=== PATIENT | female | born 1985 | race American Indian/Alaskan Native ===

== ENCOUNTER 2016-12-12 19:52 | Emergency (ER) | payer OTHER ==
[2016-12-12 20:55] LABS: Bilirubin,Urine NEG (Negative); Blood,Urine SM (Negative); Ketones,Urine NEG (Negative); Leukocyte Esterase,Urine NEG (Negative); Nitrite,Urine NEG (Negative); Urobilinogen,Urine < 2.0 mg/dL (<2.0)
[2016-12-12 20:56] LABS: Basophils % (Auto) 0.2 % (0.0-1.8); Eosinophils % (Auto) 0.9 % (0.0-4.3); Hemoglobin 13.2 gm/dl (10.1-14.3); Mean Corpuscular HGB Conc 34 % (30-34); Mean Corpuscular Hemoglobin 29 pg (28-32); Mean Corpuscular Volume 86 fl (79-97); Platelet Count 222 K/mm3 (140-440); Red Blood Count 4.53 M/mm3 (3.65-5.03); Red Cell Distribution Width 13.1 % (13.2-15.2); White Blood Count 8.5 K/mm3 (4.5-11.0)
[2016-12-12 21:14] LABS: Alanine Aminotransferase 13 units/L (7-56); Albumin 3.8 g/dL (3.9-5); Albumin/Globulin Ratio 1.2 %; Alkaline Phosphatase 89 units/L (35-129); Anion Gap 17 mmol/L; BUN/Creatinine Ratio 14.28; Blood Urea Nitrogen 10 mg/dL (7-17); Calcium 8.6 mg/dL (8.4-10.2); Carbon Dioxide 22 mmol/L (22-30); Chloride 97.5 mmol/L (98-107); Glucose 304 mg/dL (65-100); Lipase 17 units/L (13-60); Potassium 3.9 mmol/L (3.6-5.0); Sodium 133 mmol/L (137-145); Total Protein 6.9 g/dL (6.3-8.2)
[2016-12-13] MEDS ORDERED: NACL 0.9% 1000 ML 1,000 ML IV ONE (02:55)
[2016-12-13] MEDS ORDERED: TORADOL IV ONE (02:55)
[2016-12-13] MEDS ORDERED: MORPHINE IV ONE (02:56)
--- NOTE | 2016-12-13 02:58 | Emergency Department Report ---
HPI - General Chief Complaint: Abdominal Pain Time Seen by Provider: 12/13/16 02:46 - HPI HPI: 31-year-old female presents to the emergency department, dropped off by her boyfriend, with complaint of pain to the bilateral lower back since yesterday. The patient thinks that she had a urinary tract infection last week and took some antibiotics that she had left over. She was having some dysuria at that time but it is since stopped. She also says that she had a fever last night with a temperature of 102. She has some nausea but no vomiting. She denies any chest pain, shortness of breath, numbness or paresthesias, problems with bowel movements, vaginal bleeding or discharge. She is not taken anything for symptoms prior to presentation other than the previous antibiotics. No recent travel or sick contacts at home. She has a primary care doctor but has not seen them in 6 months. She has a past medical history of insulin-dependent diabetes. ED Past Medical Hx - Past Medical History Previous Medical History?: Yes Hx Hypertension: No Hx Heart Attack/AMI: No Hx Congestive Heart Failure: No Hx Diabetes: Yes (2008) Hx Deep Vein Thrombosis: No Hx Pulmonary Embolism: No Hx Liver Disease: No Hx Renal Disease: No Hx Sickle Cell Disease: No Hx Arthritis: No Hx Seizures: No Hx Kidney Stones: No Hx Asthma: No Hx COPD: No Hx Tuberculosis: No Hx Dementia: No Hx HIV: No Additional medical history: DIABETIC NEUROPATHY - Surgical History Past Surgical History?: Yes Hx Coronary Stent: No Hx Open Heart Surgery: No Hx Pacemaker: No Hx Internal Defibrillator: No Hx Cholecystectomy: Yes Hx Appendectomy: No Hx Breast Surgery: No Additional Surgical History: C SECTION x 2 - Social History Smoking Status: Never Smoker Substance Use Type: None - Medications Home Medications: Home Medications Medication Instructions Recorded Confirmed Last Taken Type Insulin NPH Human Isophane 17 units SUB-Q BID 11/03/15 11/03/15 Unknown History [HumuLIN N] Insulin Regular, Human [HumuLIN R] 21 units SUB-Q BID 11/03/15 11/03/15 Unknown History Ondansetron [Zofran TAB] 4 mg PO Q8HR PRN #20 tablet 11/05/15 Unknown Rx HYDROcodone/APAP 5-325 [Harvard 1 each PO Q6H PRN #12 tablet 12/13/16 Unknown Rx 5-325 mg TAB] ED Review of Systems ROS: Stated complaint: FEVER, KIDNEY PAIN, BACK PAIN Other details as noted in HPI Comment: All other systems reviewed and negative Constitutional: chills, fever Eyes: denies: eye pain, eye discharge, vision change ENT: denies: ear pain, throat pain Respiratory: denies: cough, shortness of breath, wheezing Cardiovascular: denies: chest pain, palpitations Gastrointestinal: denies: abdominal pain, nausea, diarrhea Genitourinary: denies: urgency, dysuria, discharge Musculoskeletal: back pain. denies: arthralgia Skin: denies: rash, lesions Neurological: denies: headache, weakness, paresthesias Physical Exam - Physical Exam Vital Signs: Vital Signs 12/12/16 20:29 Temperature 99.5 F Pulse Rate 105 H Respiratory 20 Rate Blood Pressure 146/87 O2 Sat by Pulse 100 Oximetry Physical Exam: GENERAL: The patient is well-developed well-nourished. HEENT: Normocephalic. Atraumatic. Extraocular motions are intact. Patient has moist mucous membranes. Pupils equal reactive to light bilaterally. NECK: Supple. Trachea is midline. CHEST/LUNGS: Clear to auscultation. There is no respiratory distress noted. HEART/CARDIOVASCULAR: Regular. There is no tachycardia. There is no gallop rub or murmur. ABDOMEN: Abdomen is soft, nontender. Patient has normal bowel sounds. There is no abdominal distention. Obese habitus. SKIN: Skin is warm and dry. NEURO: The patient is awake, alert, and oriented. The patient is cooperative. The patient has no focal neurologic deficits. The patient has normal speech. Cranial nerves II through XII grossly intact. MUSCULOSKELETAL: There is no tenderness or deformity. There is no limitation range of motion. There is no evidence of acute injury. Muscle strength 5 out of 5 for upper and lower extremities including EHL bilaterally. BACK: No midline thoracic or lumbar tenderness to palpation, step-off, or deformity. There is reproducible lumbar and lower thoracic paraspinal tenderness to palpation with some associated taut musculature. ED Course Vital Signs 12/12/16 20:29 Temperature 99.5 F Pulse Rate 105 H Respiratory 20 Rate Blood Pressure 146/87 O2 Sat by Pulse 100 Oximetry ED Medical Decision Making - Lab Data Result diagrams: 12/12/16 20:43 12/12/16 20:43 - Radiology Data Radiology results: report reviewed Renal ultrasound shows a mild amount of right-sided hydronephrosis but there is no signs of infection, renal calculi or any other acute processes. - Medical Decision Making 31-year-old female presents the emergency department with a few days of some lower back discomfort. Previous to that she had some dysuria and took some antibiotics that she had left over the symptoms seemed to resolve. The lower back pain is still there. Labs are mostly unremarkable as there is no leukocytosis, electrolyte abnormalities, renal insufficiency. Urinalysis does not show any urinary tract infection, significant hematuria and the patient is not . She does have hyperglycemia with her history of insulin- dependent diabetes but it does not appear to be DKA or HHNK. On physical exam there is no midline tenderness to palpation or deformity. The low back pain is reproducible in the paraspinal region. A renal ultrasound was done that showed mild right-sided hydronephrosis but otherwise no calculi, pyelonephritis or any other acute process seen. She was given some IV fluid and pain medication and upon reevaluation she is feeling improved. She was seen ambulatory in the emergency department and appears stable. She appears low suspicion for any of the emergent back condition such as cauda equina, epidural abscess or cord compression syndrome. She has good follow-up with a primary care physician, Dr. Del Real, and has been encouraged to follow up on Wednesday without fail. She will return to the ER with any worsening of her symptoms or any acute distress. She understands and agrees to the plan. - Differential Diagnosis muscle spasm, muscle strain, , UTI, pyelonephritis, nephrolithiasi Critical Care Time: No Critical care attestation.: If time is entered above; I have spent that time in minutes in the direct care of this critically ill patient, excluding procedure time. ED Disposition Clinical Impression: Back pain, Hyperglycemia Disposition: DC-01 TO HOME OR SELFCARE Is pt being admited?: No Condition: Stable Instructions: Back Pain (ED), Diabetic Hyperglycemia (ED) Additional Instructions: Please follow-up with your primary care doctor in the next few days. Return to the emergency department with any worsening of your symptoms, numbness, problems with bowel or bladder, intractable fever, intractable vomiting, or any acute distress. You've been prescribed a medication that is sedating. Therefore this medication cannot be mixed with alcohol, or taken prior to driving, working, or being responsible for children. Try to stay away from foods that are starches, carbohydrates and/or sugars. Please continue with your normal diabetes regimen. Prescriptions: HYDROcodone/APAP 5-325 [Harvard 5-325 mg TAB] 1 each PO Q6H PRN #12 tablet PRN Reason: Pain Referrals: PRIMARY CARE, [Primary Care Provider] - [facility] Time of Disposition: 04:42
--- NOTE | 2016-12-13 03:44 | Ultrasound Report ---
FINAL REPORT PROCEDURE: US RENAL BILAT TECHNIQUE: Real-time sonography in multiple planes of the kidneys, ureters and urinary bladder was performed with image documentation. CPT 57920 HISTORY: flank pain COMPARISON: No prior studies are available for comparison. FINDINGS: RIGHT kidney: Mild hydronephrosis. No renal masses. Length: 12 cm. LEFT kidney: Normal echotexture. No focal renal mass, calculus, or hydronephrosis. Length: 12.2cm. Bladder: Normal. IMPRESSION: Slight right hydronephrosis. The left kidney has a normal appearance..
[2016-12-13 05:26] VITALS: BP 131/79
== END 2016-12-13 05:26 | disposition home or self-care (01) ==
LOC: ED 19:52
DX: M54.5 Low back pain (principal); E11.65 Type 2 diabetes mellitus with hyperglycemia; Z90.49 Acquired absence of other specified parts of digestive tract; Z79.4 Long term (current) use of insulin
CPT/HCPCS: 36415; 76770; 80053; 81001; 81025; 82962; 83690; 85025; 96361; 96374; 96375; 99284; J1885; J2270; J7030

== ENCOUNTER 2017-08-20 17:03 | Emergency (ER) | payer OTHER ==
[2017-08-20] MEDS ORDERED: NACL 0.9% 1000 ML 1,000 ML IV ONE (18:33)
[2017-08-20] MEDS ORDERED: ZOFRAN IV ONE (18:33)
[2017-08-20] MEDS ORDERED: TORADOL IV ONE (18:33)
--- NOTE | 2017-08-20 18:33 | Emergency Department Report ---
Blank Doc - Documentation Documentation: This is a 31-year-old black female presented with flulike symptoms for the past 2 days with cough cold congestion. Patient states her cough is productive of clear sputum she also has some pain in her bilateral lower ribs. Patient is a diabetic states she is only been drinking water out of her blood sugar was 400 this morning. Patient has nausea vomiting he aches as well and has diarrhea. Patient will be moved to the treatment area at this time to get IV fluids IV insulin and check labs and a chest x-ray
[2017-08-20 19:05] LABS: Basophils % (Auto) 0.7 % (0.0-1.8); Eosinophils % (Auto) 0.6 % (0.0-4.3); Hematocrit 46.7 % (30.3-42.9); Hemoglobin 15.5 gm/dl (10.1-14.3); Lymphocytes % (Auto) 31.3 % (13.4-35.0); Mean Corpuscular HGB Conc 33 % (30-34); Mean Corpuscular Hemoglobin 29 pg (28-32); Mean Corpuscular Volume 86 fl (79-97); Monocytes # (Auto) 0.5 K/mm3 (0.0-0.8); Monocytes % (Auto) 7.1 % (0.0-7.3); Platelet Count 207 K/mm3 (140-440); Red Blood Count 5.43 M/mm3 (3.65-5.03); Red Cell Distribution Width 13.3 % (13.2-15.2)
[2017-08-20 19:05] LABS: HCG Qualitative,Urine Negative (Negative)
[2017-08-20 19:07] LABS: Bilirubin,Urine NEG (Negative); Blood,Urine NEG (Negative); Color,Urine Straw (Yellow); Nitrite,Urine NEG (Negative); Protein,Urine <15 mg/dL mg/dL (Negative); Urobilinogen,Urine < 2.0 mg/dL (<2.0)
[2017-08-20 19:21] LABS: BUN/Creatinine Ratio 14; Blood Urea Nitrogen 10 mg/dL (7-17); Calcium 8.9 mg/dL (8.4-10.2); Hemolysis Index 31
[2017-08-20] MEDS ORDERED: NORCO 7.5/325 PO ONE (20:35)
--- NOTE | 2017-08-20 20:41 | Emergency Department Report ---
- General Chief Complaint: Upper Respiratory Infection Stated Complaint: FLU Time Seen by Provider: 08/20/17 18:29 Source: patient Mode of arrival: Ambulatory Limitations: No Limitations - History of Present Illness Initial Comments: 31-year-old -[place] female comes in for body aches bilateral rib pain, cough, nausea, and vomited 3 times in the last 3 days. She complains of a sore throat and left ear pain nasal congestion runny nose. Patient reports she does have sick contact. Patient reports she has been taking Tylenol and Motrin and Mucinex without much relief. Patient does admit to having the flu vaccination. Patient has a past medical history of diabetes currently on insulin Humulin N 30 units subcutaneous twice a day as well as Humulin R 40 units twice a day. MD Complaint: fever, cough, sore throat, rhinorrhea, nasal congestion -: days(s) (2) Severity: moderate, severe Severity scale (0 -10): 10 Improves With: nothing Worsens With: nothing Context: sick contacts Associated Symptoms: fever, chills, headache, rhinorrhea, nasal congestion, cough, chest pain, nausea, vomiting - Related Data Home Medications Medication Instructions Recorded Confirmed Last Taken Insulin NPH Human Isophane 17 units SUB-Q BID 11/03/15 11/03/15 Unknown [HumuLIN N] Insulin Regular, Human [HumuLIN R] 21 units SUB-Q BID 11/03/15 11/03/15 Unknown Previous Rx's Medication Instructions Recorded Last Taken Type Ondansetron [Zofran TAB] 4 mg PO Q8HR PRN #20 tablet 11/05/15 Unknown Rx HYDROcodone/APAP 5-325 [Gilbert 1 each PO Q6H PRN #12 tablet 12/13/16 Unknown Rx 5-325 mg TAB] Promethazine /Codeine 5 ml PO Q6H PRN #100 ml 08/20/17 Unknown Rx [Phenergan/Codeine 6.25-10 mg/5 ml] Allergies Allergy/AdvReac Type Severity Reaction Status Date / Time No Known Allergies Allergy Verified 08/20/17 17:07 ED Review of Systems ROS: Stated complaint: FLU Other details as noted in HPI Constitutional: chills, fever ENT: ear pain, throat pain, congestion Respiratory: cough Cardiovascular: chest pain Endocrine: no symptoms reported Gastrointestinal: nausea, vomiting. denies: abdominal pain, diarrhea Genitourinary: denies: urgency, dysuria, discharge Musculoskeletal: myalgia Skin: denies: rash, lesions Neurological: headache Psychiatric: denies: anxiety, depression Hematological/Lymphatic: denies: easy bleeding, easy bruising ED Past Medical Hx - Past Medical History Hx Hypertension: No Hx Heart Attack/AMI: No Hx Congestive Heart Failure: No Hx Diabetes: Yes Hx Deep Vein Thrombosis: No Hx Pulmonary Embolism: No Hx Liver Disease: No Hx Renal Disease: No Hx Sickle Cell Disease: No Hx Arthritis: No Hx Seizures: No Hx Kidney Stones: No Hx Asthma: No Hx COPD: No Hx Tuberculosis: No Hx Dementia: No Hx HIV: No Additional medical history: DIABETIC NEUROPATHY - Surgical History Hx Coronary Stent: No Hx Open Heart Surgery: No Hx Pacemaker: No Hx Internal Defibrillator: No Hx Cholecystectomy: Yes Hx Appendectomy: No Hx Breast Surgery: No Additional Surgical History: C SECTION x 2 - Social History Smoking Status: Never Smoker Substance Use Type: None, Alcohol - Medications Home Medications: Home Medications Medication Instructions Recorded Confirmed Last Taken Type Insulin NPH Human Isophane 17 units SUB-Q BID 11/03/15 11/03/15 Unknown History [HumuLIN N] Insulin Regular, Human [HumuLIN R] 21 units SUB-Q BID 11/03/15 11/03/15 Unknown History Ondansetron [Zofran TAB] 4 mg PO Q8HR PRN #20 tablet 11/05/15 Unknown Rx HYDROcodone/APAP 5-325 [Gilbert 1 each PO Q6H PRN #12 tablet 12/13/16 Unknown Rx 5-325 mg TAB] Promethazine /Codeine 5 ml PO Q6H PRN #100 ml 08/20/17 Unknown Rx [Phenergan/Codeine 6.25-10 mg/5 ml] ED Physical Exam - General Limitations: No Limitations, Other (tearful) General appearance: alert, in no apparent distress - Head Head exam: Present: atraumatic, normocephalic - Eye Eye exam: Present: PERRL, EOMI - ENT ENT exam: Present: normal orophraynx, mucous membranes moist - Expanded ENT Exam Expanded TM/Canal exam: Cerumen Impaction: Right TM Throat exam: Positive: normal inspection - Neck Neck exam: Present: normal inspection - Respiratory Respiratory exam: Present: decreased breath sounds - Cardiovascular Cardiovascular Exam: Present: regular rate, normal rhythm. Absent: systolic murmur, diastolic murmur, rubs, gallop - GI/Abdominal GI/Abdominal exam: Present: soft, normal bowel sounds - Extremities Exam Extremities exam: Present: normal inspection, full ROM - Neurological Exam Neurological exam: Present: alert, oriented X3 - Psychiatric Psychiatric exam: Present: normal affect, normal mood - Skin Skin exam: Present: warm, dry, intact, normal color. Absent: rash ED Course Vital Signs 08/20/17 08/20/17 08/20/17 17:07 20:39 21:07 Temperature 98.2 F 98 F Pulse Rate 87 91 H Respiratory 20 18 14 Rate Blood Pressure 118/62 Blood Pressure 118/74 [Right] O2 Sat by Pulse 100 97 Oximetry ED Medical Decision Making - Lab Data Result diagrams: 08/20/17 18:52 08/20/17 18:52 - Radiology Data Radiology results: report reviewed, image reviewed FINDINGS: No mediastinal shift. Cardiac silhouette is not enlarged. No pneumothorax, effusion, or focal pulmonary opacity. No acute skeletal finding. IMPRESSION: No focal pulmonary opacity. - Medical Decision Making Patient has been evaluated by this provider as well as Dr. Lucio. Patient's has had an IV she's had Zofran she's had Toradol I'm given her Gilbert for chest tenderness and rib pain. Waiting on chest x-ray. Well as her blood sugar to come down. Critical care attestation.: If time is entered above; I have spent that time in minutes in the direct care of this critically ill patient, excluding procedure time. ED Disposition Clinical Impression: Upper respiratory infection Qualifiers: URI type: unspecified URI Qualified Code(s): J06.9 - Acute upper respiratory infection, unspecified Disposition: DC-01 TO HOME OR SELFCARE Is pt being admited?: No Does the pt Need Aspirin: No Condition: Stable Instructions: Upper Respiratory Infection (ED) Additional Instructions: Please drink plenty of fluids take Tylenol and Motrin for body aches and fever. Please do not operate heavy machinery right groin cough medication. All of which her primary care provider if no improvement or symptoms persist. Prescriptions: Promethazine /Codeine [Phenergan/Codeine 6.25-10 mg/5 ml] 5 ml PO Q6H PRN #100 ml PRN Reason: cough Referrals: PRIMARY CARE, [Primary Care Provider] - 3-5 Days [facility] [Provider Group] - 3-5 Days
[2017-08-20 21:09] VITALS: BP 118/74
--- NOTE | 2017-08-20 21:41 | XRay Report ---
FINAL REPORT EXAM: XR CHEST ROUTINE 2V HISTORY: cough TECHNIQUE: PA and lateral chest radiographs PRIORS: None. FINDINGS: No mediastinal shift. Cardiac silhouette is not enlarged. No pneumothorax, effusion, or focal pulmonary opacity. No acute skeletal finding. IMPRESSION: No focal pulmonary opacity.
[2017-08-20] MEDS ORDERED: BICILLIN L-A IM ONE (22:18)
== END 2017-08-20 22:33 | disposition home or self-care (01) ==
LOC: ED 17:03
DX: J06.9 Acute upper respiratory infection, unspecified (principal); E11.40 Type 2 diabetes mellitus with diabetic neuropathy, unspecified
CPT/HCPCS: 36415; 71046; 80048; 81001; 81025; 82962; 85025; 96361; 96372; 96374; 96375; 99284; J0561; J1885; J2405; J7030; J1815

== ENCOUNTER 2021-07-26 23:22 | Emergency (ER) | payer OTHER ==
--- NOTE | 2021-07-27 01:47 | XRay Report ---
Left hand 3 views INDICATION: Pain FINDINGS: There is comminuted fracture within the proximal phalanx of the thumb with displacement and soft tissue swelling. Oblique type fracture is noted Signer Name: Jair Guerrier MD Signed: 07/27/2021 1:42 AM Workstation Name: [id number]
[2021-07-27 01:51] VITALS: BP 159/101
[2021-07-27] MEDS ORDERED: IBUPROFEN 600 MG TAB PO ONE (02:00)
[2021-07-27] MEDS ORDERED: LIDOCAINE-MPF (1%) 10 MG/1 ML VIAL 5 ML INFILTRATI ONE (02:00)
[2021-07-27] MEDS ORDERED: ONDANSETRON 4 MG ODT TAB PO ONE (02:00)
[2021-07-27] MEDS ORDERED: oxyCODONE /ACETAMINOPHEN 5-325MG TAB PO ONE (02:00)
--- NOTE | 2021-07-27 02:07 | Emergency Department Report ---
ED Fall HPI - General Chief Complaint: Extremity Injury, Upper Stated Complaint: FELL Source: patient Mode of arrival: Ambulatory - History of Present Illness Initial Comments: Patient is a 35-year-old -Cym[place] female with a history of qle-tmskuwm-hzuxmigmr diabetes who presented to the ED with complaint of acute onset persistent severe left thumb and hand pain after she tripped and fell down the stairs and landed on her left hand hyperextending her left forearm about 5 hours ago. Patient states that she is unable to perform any active range of motion of the left hand or left arm due to severe pain. Patient denies head or neck injuries, dizziness, syncope, seizures, alcohol intoxication, loss of consciousness, back pain, chest pain, neck pain, numbness and tingling or weakness of upper and lower extremities bilaterally, change in vision, nausea and vomiting or abdominal pain. MD Complaint: fall, other (left thumb pain and swelling) -: Sudden, hour(s) (5) Fall From: standing, down stairs (#) When Fall Occurred: 4-6 hours [employer] Fall Witnessed: yes, by family Place Fall Occurred: home Loss of Consciousness: none Prolonged Down Time?: no Symptoms Prior to Fall: none Location: other (left thumb) Location - Extremities: Left: Hand (left thumb pain, swelling) Severity: severe Severity scale (0 -10): 8 Quality: sharp, aching Context: tripped/slipped Associated Symptoms: denies. denies: headache, neck pain, numbness, weakness, chest paint, shortness of breath, abdominal pain, hematuria, unable to walk, lightheaded, vertigo, confusion - Related Data Home Medications Medication Instructions Recorded Confirmed Last Taken Insulin NPH Human Isophane 17 units SUB-Q BID 11/03/15 11/03/15 Unknown [HumuLIN N] Insulin Regular, Human [HumuLIN R] 21 units SUB-Q BID 11/03/15 11/03/15 Unknown Previous Rx's Medication Instructions Recorded Last Taken Type Ondansetron [Zofran TAB] 4 mg PO Q8HR PRN #20 tablet 11/05/15 Unknown Rx HYDROcodone/APAP 5-325 [[place] 1 each PO Q6H PRN #12 tablet 12/13/16 Unknown Rx 5-325 mg TAB] Promethazine /Codeine 5 ml PO Q6H PRN #100 ml 08/20/17 Unknown Rx [Phenergan/Codeine 6.25-10 mg/5 ml] Cyclobenzaprine [Flexeril] 10 mg PO TID PRN #21 tab 07/27/21 Unknown Rx HYDROcodone/APAP 5-325 [[place] 1 each PO Q6HR PRN #12 tablet 07/27/21 Unknown Rx 5/325] Ibuprofen [Motrin] 800 mg PO Q8HR PRN #30 tablet 07/27/21 Unknown Rx Allergies Allergy/AdvReac Type Severity Reaction Status Date / Time No Known Allergies Allergy Verified 08/20/17 17:07 ED Review of Systems ROS: Stated complaint: FELL Other details as noted in HPI Constitutional: denies: chills, fever Eyes: denies: eye pain, eye discharge, vision change ENT: denies: ear pain, throat pain Respiratory: denies: cough, shortness of breath, wheezing Cardiovascular: denies: chest pain, palpitations Endocrine: no symptoms reported Gastrointestinal: denies: abdominal pain, nausea, diarrhea Genitourinary: denies: urgency, dysuria, discharge Musculoskeletal: joint swelling (left thumb swelling and pain), arthralgia (left thumb pain and swelling). denies: back pain Skin: denies: rash, lesions Neurological: denies: headache, weakness, paresthesias Psychiatric: denies: anxiety, depression Hematological/Lymphatic: denies: easy bleeding, easy bruising ED Past Medical Hx - Past Medical History Previous Medical History?: Yes Hx Hypertension: No Hx Heart Attack/AMI: No Hx Congestive Heart Failure: No Hx Diabetes: Yes Hx Deep Vein Thrombosis: No Hx Pulmonary Embolism: No Hx Liver Disease: No Hx Renal Disease: No Hx Sickle Cell Disease: No Hx Arthritis: No Hx Seizures: No Hx Kidney Stones: No Hx Asthma: No Hx COPD: No Hx Tuberculosis: No Hx Dementia: No Hx HIV: No Additional medical history: DIABETIC NEUROPATHY - Surgical History Past Surgical History?: Yes Hx Coronary Stent: No Hx Open Heart Surgery: No Hx Pacemaker: No Hx Internal Defibrillator: No Hx Cholecystectomy: Yes Hx Appendectomy: No Hx Breast Surgery: No Additional Surgical History: C SECTION x 2 - Social History Smoking Status: Never Smoker Substance Use Type: None, Alcohol - Medications Home Medications: Home Medications Medication Instructions Recorded Confirmed Last Taken Type Insulin NPH Human Isophane 17 units SUB-Q BID 11/03/15 11/03/15 Unknown History [HumuLIN N] Insulin Regular, Human [HumuLIN R] 21 units SUB-Q BID 11/03/15 11/03/15 Unknown History Ondansetron [Zofran TAB] 4 mg PO Q8HR PRN #20 tablet 11/05/15 Unknown Rx HYDROcodone/APAP 5-325 [[place] 1 each PO Q6H PRN #12 tablet 12/13/16 Unknown Rx 5-325 mg TAB] Promethazine /Codeine 5 ml PO Q6H PRN #100 ml 08/20/17 Unknown Rx [Phenergan/Codeine 6.25-10 mg/5 ml] Cyclobenzaprine [Flexeril] 10 mg PO TID PRN #21 tab 07/27/21 Unknown Rx HYDROcodone/APAP 5-325 [[place] 1 each PO Q6HR PRN #12 tablet 07/27/21 Unknown Rx 5/325] Ibuprofen [Motrin] 800 mg PO Q8HR PRN #30 tablet 07/27/21 Unknown Rx ED Physical Exam - General Limitations: No Limitations General appearance: alert, in no apparent distress - Head Head exam: Present: atraumatic, normocephalic, normal inspection - Eye Eye exam: Present: normal appearance, PERRL, EOMI Pupils: Present: normal accommodation - ENT ENT exam: Present: normal exam, normal orophraynx, mucous membranes moist, TM's normal bilaterally, normal external ear exam - Neck Neck exam: Present: normal inspection, full ROM. Absent: tenderness, meningismus, lymphadenopathy - Respiratory Respiratory exam: Present: normal lung sounds bilaterally. Absent: respiratory distress, wheezes, rales, chest wall tenderness, accessory muscle use, decreased breath sounds, prolonged expiratory - Cardiovascular Cardiovascular Exam: Present: normal rhythm, tachycardia, normal heart sounds. Absent: systolic murmur, diastolic murmur, rubs, gallop - GI/Abdominal GI/Abdominal exam: Present: soft, normal bowel sounds. Absent: tenderness, guarding, rebound, hyperactive bowel sounds, hypoactive bowel sounds, organomegaly - Extremities Exam Extremities exam: Present: normal inspection, full ROM, tenderness (Palpable left thumb tenderness and swelling), normal capillary refill, joint swelling (left thumb). Absent: pedal edema, calf tenderness - Back Exam Back exam: Present: normal inspection, full ROM. Absent: tenderness, CVA tenderness (R), CVA tenderness (L), muscle spasm, paraspinal tenderness, vertebral tenderness, rash noted - Neurological Exam Neurological exam: Present: alert, oriented X3, CN II-XII intact, normal gait, reflexes normal - Psychiatric Psychiatric exam: Present: normal affect, normal mood - Skin Skin exam: Present: warm, dry, intact, normal color. Absent: rash ED Course Vital Signs 07/27/21 01:47 Temperature 99.0 F Pulse Rate 138 H Respiratory 18 Rate Blood Pressure 159/101 O2 Sat by Pulse 99 Oximetry ED Medical Decision Making - Radiology Data Radiology results: report reviewed, image reviewed [facility] [address] [place] [address] XRay Report Signed Patient: FRANNY ARMSTRONG MR#: [id number] : 1985 Acct:[id number] Age/Sex: 35 / F ADM Date: 07/26/21 Loc: ED Attending Dr: Ordering Physician: DOYLE KATZ DO Date of Service: 07/27/21 Procedure(s): XR hand 3+V LT Accession Number(s): [id number] cc: DOYLE KATZ DO Fluoro Time In Minutes: Left hand 3 views INDICATION: Pain FINDINGS: There is comminuted fracture within the proximal phalanx of the thumb with displacement and soft tissue swelling. Oblique type fracture is noted Signer Name: Jair Guerrier MD Signed: 07/27/2021 1:42 AM Workstation Name: [id number] Transcribed By: CW Dictated By: MICHEAL GUERRIER MD Electronically Authenticated By: MICHEAL GUERRIER MD Signed Date/Time: 07/27/21141 DD/ 1 TD/TT: - Medical Decision Making This is a 35-year-old -[place]ym[place] female with a history of dwu-jgwlpft-ztxdjlzmj diabetes who presented to the ED with complaint of acute onset persistent severe left thumb and hand pain after she tripped and fell down the stairs and landed on her left hand hyperextending her left forearm about 5 hours ago. Patient states that she is unable to perform any active range of motion of the left hand or left arm due to severe pain. In the ED, patient is alert and oriented x3 and is not in distress. Patient was treated for pain in the ED and left hand x-ray showed a comminuted fracture within the proximal phalanx of the thumb with displacement and soft tissue swelling. Oblique type fracture is noted. The left thumb was digitally blocked with lidocaine 1% solution and when anesthesia was fully achieved, the left thumb was reduced and aligned before application of a left thumb spica splint. Patient tolerated the procedure well. On reevaluation, patient left arm is neurovascularly intact after application of the thumb spica splint. On reevaluation, patient's pain is well controlled with medications. Patient was therefore discharged home on pain medications and given a referral to the orthopedic surgeon on-call Dr. Merino for follow-up in 3 to 5 days for reevaluation. Patient was advised to contact Dr. Merino's office first thing in the morning on Wednesday, July 28, 2021 to schedule a follow-up appointment. Patient was advised to return to the ED immediately if symptoms get worse. - Differential Diagnosis Thumb fracture; thumb sprain; hand contusion; hand sprain Critical care attestation.: If time is entered above; I have spent that time in minutes in the direct care of this critically ill patient, excluding procedure time. ED Disposition Clinical Impression: Fracture of thumb, proximal phalanx, left, closed Qualifiers: Encounter type: initial encounter Fracture alignment: displaced Qualified Code(s): S62.512A - Displaced fracture of proximal phalanx of left thumb, in itial encounter for closed fracture Contusion of left hand including fingers Qualifiers: Encounter type: initial encounter Qualified Code(s): S60.222A - Contusion of left hand, initial encounter Disposition: 01 HOME / SELF CARE / HOMELESS Is pt being admited?: No Does the pt Need Aspirin: No Condition: Stable Instructions: Finger Fracture, Adult, [id number], Cast or Splint Care, Adult, [id number], Hand Contusion, [id number] Additional Instructions: The left hand x-ray showed comminuted fracture of proximal left thumb. Therefore take medications with food, drink plenty of fluids, follow-up with the orthopedic surgeon Dr. Merino for further evaluation. Contact Dr. Merino's office first thing in the morning on Wednesday July 28, 2021 to schedule a follow-up appointment. Return to the ED immediately if symptoms get worse. Prescriptions: Cyclobenzaprine [Flexeril] 10 mg PO TID PRN #21 tab PRN Reason: Muscle Spasm Ibuprofen [Motrin] 800 mg PO Q8HR PRN #30 tablet PRN Reason: Pain , Severe (7-10) HYDROcodone/APAP 5-325 [[place] 5/325] 1 each PO Q6HR PRN #12 tablet PRN Reason: Pain Referrals: JAIR MERINO MD [Staff Physician] - 3-5 Days Forms: Work/School Release Form(ED) Time of Disposition: 02:13 Print Language: GEORGIAN
== END 2021-07-27 04:15 | disposition home or self-care (01) ==
LOC: ED 23:22
DX: S62.512A Displaced fracture of proximal phalanx of left thumb, initial encounter for closed fracture (principal); S60.222A Contusion of left hand, initial encounter; S60.00XA Contusion of unspecified finger without damage to nail, initial encounter; E11.9 Type 2 diabetes mellitus without complications; E11.40 Type 2 diabetes mellitus with diabetic neuropathy, unspecified; Z90.49 Acquired absence of other specified parts of digestive tract; Z98.890 Other specified postprocedural states; W10.9XXA Fall (on) (from) unspecified stairs and steps, initial encounter; Y93.89 Activity, other specified; Y92.89 Other specified places as the place of occurrence of the external cause; Y99.8 Other external cause status
CPT/HCPCS: 26725; 73130; 99283; J3490; Q0162

== ENCOUNTER 2021-08-12 06:13 | Day surgery (SDC) | payer OTHER ==
--- NOTE | 2021-08-05 14:31 | Anesthesia Consultation ---
Anesthesia Consult and Med Hx Date of service: 08/07/21 - Airway Anesthetic Teeth Evaluation: Good ROM Head & Neck: Adequate Mental/Hyoid Distance: Adequate Mallampati Class: Class I Intubation Access Assessment: Good - Pulmonary Exam CTA: Yes - Cardiac Exam Cardiac Exam: RRR - Pre-Operative Health Status ASA Pre-Surgery Classification: ASA3 Proposed Anesthetic Plan: General - Pre-Anesthesia Comment Pre-Anesthesia Comments: Discussed [place] vs regional/local. Patient would like to decide DOS. - Pulmonary Hx Smoking: Yes (1/2 PPD) Hx Respiratory Symptoms: No Hx Sleep Apnea: No (reports previous neg sleep study) - Cardiovascular System Hx Hypertension: Yes (not currently on medications) Hx Heart Attack/AMI: No Hx Percutaneous Transluminal Coronary Angioplasty (PTCA): No Hx Cardia Arrhythmia: No - Central Nervous System CVA: No Hx Psychiatric Problems: Yes (anxiety/depression) - Endocrine Hx Renal Disease: No Hx Liver Disease: No Hx Insulin Dependent Diabetes: Yes Hx Thyroid Disease: No - Other Systems Hx Obesity: Yes (BMI 34) - Additional Comments Anesthesia Medical History Comments: No hx anesthetic complications. Had COVID in 2020 complicated by heart failure. States that she has not seen risk management consultant in several months but that she was told that her heart function had returned to normal. Cardiac records requested. She denies chest pain, palpitations, dyspnea, edema, orthopnea and has at least 4 mets functional capacity.
[~2021-08-12 06:13] MED LIST: ACETAMINOPHEN 500 MG TAB PO SCH; GABAPENTIN 300 MG CAP PO NR; LACTATED RINGERS 1,000 ML IV SCH; MIDAZOLAM 2 MG/2 ML INJ IV NR; SCOPOLAMINE TRANSDERMAL PATCH 72 HR TD NR; fentaNYL 100 MCG/2 ML INJ IV PRN
[2021-08-12] MEDS ORDERED: fentaNYL 100 MCG/2 ML INJ ONE ×2 (07:13→10:24)
[2021-08-12] MEDS ORDERED: propofoL 200 MG/20 ML VIAL IV ONE (07:13)
[2021-08-12] MEDS ORDERED: LIDOCAINE MPF (2%) 20 MG/1 ML VIAL 5 ML ONE (07:13)
[2021-08-12] MEDS ORDERED: HYDROmorphone 1 MG/1 ML INJ IV PRN (07:28)
[2021-08-12] MEDS ORDERED: ONDANSETRON 4 MG/2 ML INJ IV PRN (07:28)
--- NOTE | 2021-08-12 07:28 | Anesthesia Day of Surgery ---
Anesthesia Day of Surgery - Day of Surgery Patient Examined: Yes Patient H&P Reviewed: Yes Patient is NPO: Yes
[2021-08-12] MEDS ORDERED: ceFAZolin/STERILE WATER 2 GM/20 ML SYRINGE IV NR (08:00)
[2021-08-12] MEDS ORDERED: SCOPOLAMINE TRANSDERMAL PATCH 72 HR TD NR (08:00)
[2021-08-12] MEDS ORDERED: ONDANSETRON 4 MG/2 ML INJ ONE (08:14)
[2021-08-12] MEDS ORDERED: dexAMETHasone 20 MG/5 ML VIAL ONE (08:14)
[2021-08-12] MEDS ORDERED: BUPIVACAINE/PF (0.5%) 5 MG/1 ML 10 ML VIAL INFILTRATI ONE ×2 (08:27→08:36)
[2021-08-12] MEDS ORDERED: HYDROmorphone 1 MG/1 ML INJ ONE (08:28)
[2021-08-12] MEDS ORDERED: SODIUM CHLORIDE 0.9% IRR 1,500 ML BOTTLE IR ONE (08:39)
[2021-08-12] MEDS ORDERED: MIDAZOLAM 2 MG/2 ML INJ ONE (10:42)
[2021-08-12] MEDS: HYDROmorphone 1 MG/1 ML INJ IV PRN ×4 (10:50→11:30)
[2021-08-12] MEDS ORDERED: MEPERIDINE 25 MG/1 ML INJ IV PRN (11:00)
[2021-08-12] MEDS ORDERED: KETOROLAC 30 MG/1 ML INJ IV ONE (11:00)
[2021-08-12] MEDS ORDERED: diphenhydrAMINE 50 MG/ML VIAL IV ONE (11:00)
--- NOTE | 2021-08-12 11:11 | XRay Report ---
Left fingers 2 images INDICATION: Fracture FINDINGS: 0.1 minute of fluoroscopy time for ORIF thumb Signer Name: Jair Guerrier MD Signed: 08/12/2021 11:07 AM Workstation Name: [email or web address]
[2021-08-12] MEDS ORDERED: diphenhydrAMINE 50 MG/ML VIAL ONE (11:28)
[2021-08-12] MEDS ORDERED: MEPERIDINE 25 MG/1 ML INJ ONE (11:29)
[2021-08-12] MEDS ORDERED: KETOROLAC 30 MG/1 ML INJ ONE (11:59)
--- NOTE | 2021-08-12 12:14 | Procedure Note ---
Date of procedure: 08/12/21 Pre-op diagnosis: Displaced left proximal phalanx fracture thumb Post-op diagnosis: same Procedure: Open reduction internal fixation left proximal phalanx thumb Procedure Patient was brought to the OR placed in the OR table in supine position following induction intubation anesthesia the patient's left upper extremity was prepped and draped in the usual sterile manner. A timeout procedure was done to identify the patient and the correct operative site. Next the left upper extremity was then exsanguinated followed by inflation of the pneumatic tourniquet to 250 mmHg. A bayonet type incision was made over the proximal phalanx incision was then taken down sharply through skin subcu the extensor tendon was seen and was incised longitudinally the which brought us onto the fracture site here patient was noted to have comminuted displaced intra-art icular proximal phalanx fracture after careful and gentle manipulation the early callus was removed the fracture fragments were reapproximated and were held in place by way of a bone-holding forceps next small K wires were used to temporarily fix the fracture fragments following this a T-type mini plate was applied to the proximal phalanx along the distal dorsal surface this plate was then held in place by way of screws of appropriate lengths AP and lateral views were obtained showing good reduction of the fracture and placement of our hardware following this the wound was copiously irrigated the extensor tendon was repaired using 6-0 nylon in an interrupted fashion the skin was closed with 3-0 nylon in an interrupted pattern routine postop dressings were applied as well as a well-padded aluminum splint the patient tolerated the procedure there were no complications Anesthesia: MAC Surgeon: JAIR ERVIN Estimated blood loss: minimal Pathology: none Condition: stable Disposition: PACU
--- NOTE | 2021-08-12 12:55 | Post Anesthesia Evaluation ---
- Post Anesthesia Evaluation Patient Participated: Yes Airway Patent: Yes Stable Respiratory Function: Yes Nausea/Vomiting: No Temp > 96.8F: Yes Pain Manageable: Yes (Patient has been taking multiple Percocets qd for back p ain) Adequeate Hydration: Yes Anesthesia Complications: No Block Receding Appropriately: Not Applicable Patient on Ventilator: No
[2021-08-12 15:32] VITALS: BP 168/92
== END 2021-08-12 06:14 | disposition home or self-care (01) ==
LOC: OR 06:13
PROVIDERS: ATTEND Orthopaedic Surgery
DX: S62.512A Displaced fracture of proximal phalanx of left thumb, initial encounter for closed fracture (principal); I11.0 Hypertensive heart disease with heart failure; I50.9 Heart failure, unspecified; E11.9 Type 2 diabetes mellitus without complications; E07.9 Disorder of thyroid, unspecified; Z20.822 Contact with and (suspected) exposure to COVID-19; Z98.891 History of uterine scar from previous surgery; Z98.890 Other specified postprocedural states; X58.XXXA Exposure to other specified factors, initial encounter; Y93.89 Activity, other specified; Y92.89 Other specified places as the place of occurrence of the external cause; Y99.8 Other external cause status
CPT/HCPCS: 26735; 73140; 81025; 82962; C1713; J0690; J1100; J1170; J1200; J1885; J2175; J2250; J2405; J2704; J3010; J3490; J7120; U0003

== ENCOUNTER 2021-11-27 14:51 | Outpatient (CLI) | payer OTHER ==
--- NOTE | 2021-11-27 16:20 | XRay Report ---
Left hand 3 views INDICATION: History of fracture FINDINGS: Postoperative change with fixation of the thumb proximal phalanx. Overall alignment appears normal. A few of the small wire/screw extending slightly through the cortex Mild degenerative change and IP joints and MCP joints. Signer Name: Jair Guerrier MD Signed: 11/27/2021 4:11 PM Workstation Name: [id number]
== END 2021-11-27 14:52 | disposition home or self-care (01) ==
LOC: XRAY 14:51
PROVIDERS: ATTEND Orthopaedic Surgery
DX: S62.512A Displaced fracture of proximal phalanx of left thumb, initial encounter for closed fracture (principal); M19.042 Primary osteoarthritis, left hand; X58.XXXA Exposure to other specified factors, initial encounter; Y93.89 Activity, other specified; Y92.89 Other specified places as the place of occurrence of the external cause; Y99.8 Other external cause status